=== PATIENT | male | born 1960 | race Caucasian/White ===

== ENCOUNTER 2023-07-23 15:28 | Outpatient (RCR) | payer OTHER, SELFPAY | END 2023-07-23 23:59 | disposition home or self-care (01) | LOC: RPT 15:28 | PROVIDERS: ATTENDING PHYSICIAN Family Medicine | DX: R53.81 Other malaise (principal); R26.2 Difficulty in walking, not elsewhere classified; Z73.6 Limitation of activities due to disability; R53.1 Weakness; M62.838 Other muscle spasm; R25.2 Cramp and spasm ==

== ENCOUNTER 2023-08-07 15:19 | Outpatient (RCR) | payer BC, SELFPAY | END 2023-08-07 23:59 | disposition home or self-care (01) | LOC: RST 15:19 | PROVIDERS: ATTENDING PHYSICIAN Nurse Practitioner Adult Health; FAMILY PHYSICIAN Family Medicine | DX: R41.3 Other amnesia (principal); R47.02 Dysphasia; R47.1 Dysarthria and anarthria; G20.A1 Parkinson's disease without dyskinesia, without mention of fluctuations | CPT/HCPCS: 92507; 92523 ==

== ENCOUNTER 2023-08-28 15:10 | Outpatient (RCR) | payer OTHER, BC, SELFPAY | END 2023-09-05 14:03 | disposition home or self-care (01) | LOC: RST 15:10 | PROVIDERS: ATTENDING PHYSICIAN Nurse Practitioner Adult Health; FAMILY PHYSICIAN Family Medicine | DX: R41.3 Other amnesia (principal); R47.02 Dysphasia; R47.1 Dysarthria and anarthria | CPT/HCPCS: 92507 ==

== ENCOUNTER → 2023-10-26 09:29 | Outpatient (REF) | payer OTHER, SELFPAY ==
[2023-10-26 11:29] LABS: Blood Urea Nitrogen 20 mg/dl (9-20); Calcium 9.6 mg/dl (8.4-10.2); Carbon Dioxide 23 mmol/L (22-30); Chloride 107 mmol/L (98-107); Glucose 91 mg/dl (70-99); Potassium 4.2 mmol/L (3.5-5.1); Sodium 139 mmol/L (135-145); eGFR > 60.00
== END ==
LOC: REG 09:29
PROVIDERS: ATTENDING PHYSICIAN Family Medicine
DX: I10 Essential (primary) hypertension (principal)
CPT/HCPCS: 36415; 80048

== ENCOUNTER 2023-11-08 13:03 | Outpatient (RCR) | payer OTHER, SELFPAY | END 2023-11-08 23:59 | disposition home or self-care (01) | LOC: RST 13:03 | PROVIDERS: ATTENDING PHYSICIAN Nurse Practitioner Adult Health; FAMILY PHYSICIAN Family Medicine | DX: G20.A1 Parkinson's disease without dyskinesia, without mention of fluctuations (principal); R47.1 Dysarthria and anarthria | CPT/HCPCS: 92507; 92522 ==

== ENCOUNTER 2023-11-16 07:49 | Outpatient (RCR) | payer OTHER, SELFPAY | END 2023-11-16 09:10 | disposition home or self-care (01) | LOC: RST 07:49 | PROVIDERS: ATTENDING PHYSICIAN Nurse Practitioner Adult Health; FAMILY PHYSICIAN Family Medicine | DX: G20.A1 Parkinson's disease without dyskinesia, without mention of fluctuations (principal); R47.1 Dysarthria and anarthria | CPT/HCPCS: 92507 ==

== ENCOUNTER 2024-01-09 11:19 | Outpatient (RCR) | payer SELFPAY | END 2024-01-09 23:59 | disposition home or self-care (01) | LOC: RST 11:19 | PROVIDERS: ATTENDING PHYSICIAN Nurse Practitioner Adult Health; FAMILY PHYSICIAN Family Medicine | DX: G20.A1 Parkinson's disease without dyskinesia, without mention of fluctuations (principal); R47.1 Dysarthria and anarthria ==

== ENCOUNTER 2024-03-05 13:14 | Outpatient (RCR) | payer SELFPAY | END 2024-03-05 23:59 | disposition home or self-care (01) | LOC: RST 13:14 | PROVIDERS: ATTENDING PHYSICIAN Nurse Practitioner Adult Health; FAMILY PHYSICIAN Family Medicine | DX: G20.A1 Parkinson's disease without dyskinesia, without mention of fluctuations (principal) ==

== ENCOUNTER 2024-07-16 13:53 | Outpatient (RCR) | payer SELFPAY | END 2024-07-16 23:59 | disposition home or self-care (01) | LOC: RST 13:53 | PROVIDERS: ATTENDING PHYSICIAN Nurse Practitioner Adult Health; FAMILY PHYSICIAN Family Medicine | DX: G20.A1 Parkinson's disease without dyskinesia, without mention of fluctuations (principal) ==

== ENCOUNTER → 2024-08-01 06:21 | Outpatient (REF) | payer OTHER, SELFPAY ==
[2024-08-01 08:31] LABS: Blood Urea Nitrogen 27 mg/dl (9-20); Calcium 9.5 mg/dl (8.4-10.2); Carbon Dioxide 27 mmol/L (22-30); Chloride 102 mmol/L (98-107); Glucose 83 mg/dl (70-99); Potassium 4.2 mmol/L (3.5-5.1); Sodium 139 mmol/L (135-145); eGFR > 60.00
== END ==
LOC: REG 06:21
PROVIDERS: ATTENDING PHYSICIAN Nurse Practitioner Adult Health; FAMILY PHYSICIAN Family Medicine
DX: Z13.9 Encounter for screening, unspecified (principal)
CPT/HCPCS: 36415; 80048

== ENCOUNTER 2024-09-17 09:00 | Outpatient (RCR) | payer MEDICARE, OTHER, SELFPAY | END 2024-09-17 23:59 | disposition home or self-care (01) | LOC: RST 09:00 | PROVIDERS: ATTENDING PHYSICIAN Nurse Practitioner Adult Health; FAMILY PHYSICIAN Family Medicine | DX: G20.C Parkinsonism, unspecified (principal) ==

== ENCOUNTER 2024-11-19 12:26 | Outpatient (RCR) | payer SELFPAY | END 2024-11-19 23:59 | disposition home or self-care (01) | LOC: RST 12:26 | PROVIDERS: ATTENDING PHYSICIAN Nurse Practitioner Adult Health; FAMILY PHYSICIAN Family Medicine | DX: G20.A1 Parkinson's disease without dyskinesia, without mention of fluctuations (principal) ==

== ENCOUNTER → 2024-11-22 07:01 | Outpatient (REF) | payer OTHER, SELFPAY ==
[2024-11-22 09:10] LABS: C-Reactive Protein < 5.00 mg/L (0.0-10.00)
[2024-11-22 09:45] LABS: Ferritin 26.7 ng/ml (17.9-464.0)
[2024-11-22 10:00] LABS: Vitamin B12 > 1000 pg/ml (239-931)
[2024-11-24 13:31] LABS: Lyme Antibody Screen, EIA Negative (Negative)
[2024-11-24 19:46] LABS: ANA, IgG Reflex to HEp-2 None Detected (None Detected)
[2024-11-25 13:57] LABS: T. pallidum Ab By TP-PA Non Reactive (Non Reactive)
[2024-11-26 16:01] LABS: Serine Protease-3, IgG 0 AU/mL (0-19)
[2024-11-27 00:51] LABS: Purkinje Cell/Neuronal Nuc IgG None Detected (None Detected)
== END ==
LOC: REG 07:01
PROVIDERS: ATTENDING PHYSICIAN Psychiatry & Neurology Neurology; FAMILY PHYSICIAN Family Medicine; REFERRING PHYSICIAN Internal Medicine
DX: R41.3 Other amnesia (principal)
CPT/HCPCS: 36415; 82607; 82728; 83516; 85652; 86038; 86140; 86255; 86618; 86780

== ENCOUNTER 2025-01-28 14:00 | Outpatient (RCR) | payer MEDICARE, OTHER, SELFPAY | END 2025-01-28 23:59 | disposition home or self-care (01) | LOC: RST 14:00 | PROVIDERS: ATTENDING PHYSICIAN Nurse Practitioner Adult Health; FAMILY PHYSICIAN Family Medicine | DX: G20.A1 Parkinson's disease without dyskinesia, without mention of fluctuations (principal) ==

== ENCOUNTER → 2025-02-23 13:44 | Outpatient (REF) | payer MEDICARE, OTHER, SELFPAY ==
--- NOTE | 2025-02-23 14:25 | CARDSERVDEF ---
Echocardiogram with Definity completed after protocol screening completed. Allergies verified.
Patent IV site: __Rt hand___
IV site flushed with 0.9% NaCl pre and post administration.
Diluted bolus method utilized to enhance visualization of ventricular byrnes.
Total volume given: __3.0__ mL
Patient tolerated all procedures well without complications.
#22 soheila placed Rt hand. Definity given. INT d/c'd. pressure held. No bleeding noted.
== END ==
LOC: RCS 13:44
PROVIDERS: ATTENDING PHYSICIAN Internal Medicine; FAMILY PHYSICIAN Family Medicine
DX: I50.32 Chronic diastolic (congestive) heart failure (principal); R09.89 Other specified symptoms and signs involving the circulatory and respiratory systems; E78.00 Pure hypercholesterolemia, unspecified; I45.10 Unspecified right bundle-branch block; E66.01 Morbid (severe) obesity due to excess calories
CPT/HCPCS: 93307; Q9957

== ENCOUNTER 2025-03-12 10:11 | Outpatient (RCR) | payer MEDICARE, OTHER, SELFPAY | END 2025-03-12 23:59 | disposition home or self-care (01) | LOC: RST 10:11 | PROVIDERS: ATTENDING PHYSICIAN Nurse Practitioner Adult Health; FAMILY PHYSICIAN Family Medicine | DX: G20.A1 Parkinson's disease without dyskinesia, without mention of fluctuations (principal); R47.1 Dysarthria and anarthria; R41.841 Cognitive communication deficit; R25.1 Tremor, unspecified; Z73.6 Limitation of activities due to disability | CPT/HCPCS: 92507; 92523; 97110; 97112; 97167; 97530 ==

== ENCOUNTER → 2025-03-18 09:37 | Outpatient (REF) | payer MEDICARE, OTHER, SELFPAY ==
[2025-03-18 10:42] LABS: Hematocrit 46.6 % (39.0-52.0); Hemoglobin 15.2 g/dL (13.0-18.0); Mean Corp Hgb Conc. 32.6 g/dL (33.0-37.0); Mean Corpuscular Volume 84.1 fL (80.0-94.0); Nucleated Red Blood Cells % 0 % (-); Platelet Count 299 10^3/uL (130-400); Red Cell Dist. Width 13.6 % (11.5-14.5)
[2025-03-18 12:37] LABS: Glycohemoglobin (HgbA1c) 5.4 % (4.0-5.9)
[2025-03-18 16:06] LABS: ALT (SGPT) 22 U/L (0-50); AST (SGOT) 23 U/L (17-59); Albumin 4.2 g/dl (3.5-5.0); Alkaline Phosphatase 91 U/L (38-126); Blood Urea Nitrogen 24 mg/dl (9-20); Calcium 9.9 mg/dl (8.4-10.2); Carbon Dioxide 29 mmol/L (22-30); Chloride 103 mmol/L (98-107); Glucose 107 mg/dl (70-99); HDL Cholesterol 50 mg/dl; LDL Cholesterol, Calculated 35 mg/dl; Potassium 4.5 mmol/L (3.5-5.1); Sodium 136 mmol/L (135-145); Total Protein 7.3 g/dl (6.3-8.2); Very Low Density Lipoprotein 53 mg/dl (0-30); eGFR > 60.00
[2025-03-18 16:40] LABS: Vitamin D, 25-OH*** 30.2 ng/mL (30-80)
[2025-03-18 16:53] LABS: PSA, Total - Screen 2.02 ng/ml (0.0-4.0); TSH 3.61 uIU/ml (0.47-4.68)
[2025-03-18 17:13] LABS: Vitamin B12 877 pg/ml (239-931)
== END ==
LOC: REG 09:37
PROVIDERS: ATTENDING PHYSICIAN Family Medicine
DX: I10 Essential (primary) hypertension (principal); E78.00 Pure hypercholesterolemia, unspecified; G20.A2 Parkinson's disease without dyskinesia, with fluctuations; I50.32 Chronic diastolic (congestive) heart failure; E53.8 Deficiency of other specified B group vitamins; R73.03 Prediabetes; Z12.5 Encounter for screening for malignant neoplasm of prostate; E55.9 Vitamin D deficiency, unspecified
CPT/HCPCS: 36415; 80053; 80061; 82306; 82607; 83036; 84443; 85025; G0103

== ENCOUNTER 2025-03-18 13:47 | Outpatient (RCR) | payer SELFPAY | END 2025-03-18 23:59 | disposition home or self-care (01) | LOC: RST 13:47 | PROVIDERS: ATTENDING PHYSICIAN Nurse Practitioner Adult Health; FAMILY PHYSICIAN Family Medicine | DX: G20.A1 Parkinson's disease without dyskinesia, without mention of fluctuations (principal); R47.1 Dysarthria and anarthria ==

== ENCOUNTER 2025-04-07 10:23 | Outpatient (RCR) | payer MEDICARE, OTHER, SELFPAY | END 2025-04-07 14:13 | disposition home or self-care (01) | LOC: RST 10:23 | PROVIDERS: ATTENDING PHYSICIAN Nurse Practitioner Adult Health; FAMILY PHYSICIAN Family Medicine | DX: G20.A1 Parkinson's disease without dyskinesia, without mention of fluctuations (principal); R47.1 Dysarthria and anarthria; R41.841 Cognitive communication deficit; R25.1 Tremor, unspecified; Z73.6 Limitation of activities due to disability | CPT/HCPCS: 92507; 97110; 97112; 97535 ==

== ENCOUNTER 2025-05-11 07:21 | Outpatient (RCR) | payer MEDICARE, OTHER, SELFPAY | END 2025-05-11 23:59 | disposition home or self-care (01) | LOC: RST 07:21 | PROVIDERS: ATTENDING PHYSICIAN Nurse Practitioner Adult Health; FAMILY PHYSICIAN Family Medicine | DX: G20.A1 Parkinson's disease without dyskinesia, without mention of fluctuations (principal); R47.1 Dysarthria and anarthria; R41.841 Cognitive communication deficit; R25.1 Tremor, unspecified; Z73.6 Limitation of activities due to disability | CPT/HCPCS: 97112; 97530 ==